=== PATIENT | female | born 1980 | race Caucasian/White ===

== ENCOUNTER 2024-04-28 10:15 | Inpatient (IN) | payer BC ==
[~2024-04-28] VITALS: Ht 172.7 cm; Wt 68.0 kg
[2024-04-28] MEDS ORDERED: VANCOMYCIN 1G PREMIX 200 ML IV ONE (10:30)
[2024-04-28] MEDS: SODIUM CHLORIDE 0.9% (SEPSIS BOLUS) IV ONE (10:44)
[2024-04-28] MEDS: PIPERACILLIN/TAZO 3.375G/50ML 50 ML IV ONE (10:44)
[2024-04-28] MEDS: ONDANSETRON HCL 4MG/2ML INJ IV ONE (11:03)
[2024-04-28 11:10] LABS: INR 0.9; PROTHROMBIN TIME 10.1 sec (9.6-11.0)
[2024-04-28 11:19] LABS: BASOPHILS % 0.4 % (0.0-2.0); EOSINOPHILS % 0.3 % (0.0-5.0); HEMATOCRIT. 50.6 % (36.0-48.0); LYMPHOCYTES % 12.6 % (20.0-50.0); MEAN CORPUSCULAR HEMOGLOBIN 28.1 pg (28.0-32.0); MEAN CORPUSCULAR HGB CONC 31.5 g/dL (31.0-37.0); MEAN CORPUSCULAR VOLUME 89.1 fL (81.0-99.0); MEAN PLATELET VOLUME 7.9 fl (7.4-10.4); NEUTROPHILS % 82.7 % (40.0-76.0); PLATELET 504 x1000/uL (130-400); RED BLOOD CELL COUNT 5.67 mill/uL (4.2-5.4); RED CELL DISTRIBUTION WIDTH 14.5 % (11.6-14.6); WHITE BLOOD COUNT 29.6 x1000/uL (4.5-11.0)
[2024-04-28 11:28] LABS: LACTIC ACID 4.1 mmol/L (0.4-2.0)
[2024-04-28] MEDS: VANCOMYCIN 1000MG/250ML IV NR (11:34)
[2024-04-28 12:10] LABS: CALCIUM 9.1 mg/dL (8.7-10.4); CARBON DIOXIDE 11 mEq/L (21-32); CHLORIDE 114 mEq/L (98-107); POTASSIUM 4.1 mEq/L (3.5-5.1); SODIUM 140 mEq/L (136-145)
[2024-04-28 12:13] LABS: TROPONIN I HIGH SENSITIVITY 29 ng/L (3.0-34)
[2024-04-28 12:15] LABS: ALANINE AMINOTRANSFERASE < 7 IU/L (10-49); ASPARTATE AMINOTRANSFERASE 18 IU/L (<34); BILIRUBIN DIRECT 0.1 mg/dL (<=3.0); BILIRUBIN TOTAL 0.6 mg/dL (0.1-1.0); CREATININE 1.2 mg/dL (0.6-1.0); GLUCOSE 134 mg/dL (70-105); PROTEIN TOTAL 6.9 g/dL (6.0-8.3); UREA NITROGEN BLOOD 9 mg/dL (9-23)
[2024-04-28 12:43] LABS: HCG SCREEN NEGATIVE
[2024-04-28] MEDS ORDERED: VANCOMYCIN 1G PREMIX 200 ML IV SCH (13:00)
[2024-04-28] MEDS ORDERED: DOCUSATE SODIUM 100MG CAPSULE PO PRN (13:00)
[2024-04-28] MEDS ORDERED: ACETAMINOPHEN 325MG TABLET PO PRN (13:00)
[2024-04-28] MEDS ORDERED: GUAIFENESIN 200MG/10ML SUGAR FREE UDC PO PRN (13:00)
[2024-04-28] MEDS ORDERED: IPRATROPIUM/ALBUTEROL 0.5-3(2.5)MG/3ML NEB HHN PRN (13:00)
[2024-04-28] MEDS ORDERED: CLONIDINE 0.1MG TABLET PO PRN (13:00)
[2024-04-28] MEDS ORDERED: HYDRALAZINE 20MG/ML VIAL IV PRN (13:15)
[2024-04-28] MEDS: LORAZEPAM 0.5MG TABLET PO PRN (13:26)
[2024-04-28] MEDS: DEXT 5%/0.9% NACL 1,000 ML IV SCH (13:34)
[2024-04-28] MEDS: ONDANSETRON HCL 4MG/2ML INJ IV PRN (13:35)
[2024-04-28] MEDS ORDERED: MORPHINE SULFATE 2 MG/ML INJ (NOT FOR IM USE) IV PRN (13:45)
[2024-04-28] MEDS ORDERED: NALOXONE HCL 0.4MG/ML VIAL IV PRN (14:00)
[2024-04-28 14:48] LABS: BG BASE EXCESS -11.7 mmol/L (-2.0-3.0); BG CARBOXYHEMOGLOBIN 0.2 % (0.5-1.5); BG DEOXYHEMOGLOBIN 1.5 % (0.0-5.0); BG FRACTION INSPIRED OXYGEN 21; BG HCO3 ACT 9.4 mmol/L (21.0-28.0); BG METHEMOGLOBIN 0.1 % (0.5-1.5); BG OXYGEN SATURATION 98.5 % (94.0-98.0); BG OXYHEMOGLOBIN 98.2 % (94.0-98.0); BG PCO2 15.5 mmHg (32.0-45.0); BG PO2 111.4 mmHg (83.0-108.0); BG SAMPLE SITE RIGHT RADIAL; BG TOTAL HEMOGLOBIN 17.4 g/dL (12.0-16.0); BG VENT MODE ROOM AIR
[2024-04-28 15:30] VITALS: BP 121/51; PULSE 106; RESP 25; TEMP 36.6404
[2024-04-28] MEDS: PANTOPRAZOLE SODIUM 40 MG/VIAL IV SCH (15:30)
[2024-04-28 16:00] VITALS: BP 105/64; PULSE 92; RESP 25; TEMP 36.78072; O2SAT 96
[2024-04-28] MEDS: PNEUMOCOCCAL 20-VAL CONJ-DIP CRM 0.5ML IM ONE (16:00)
[2024-04-28] MEDS: SODIUM CHLORIDE 0.9% 1,000 ML IV ONE (16:45)
[2024-04-28 16:57] LABS: HEMATOCRIT. 51.1 % (36.0-48.0); HEMOGLOBIN. 16.4 g/dL (12.0-16.0); MEAN CORPUSCULAR HEMOGLOBIN 28.3 pg (28.0-32.0); MEAN CORPUSCULAR HGB CONC 32.1 g/dL (31.0-37.0); MEAN CORPUSCULAR VOLUME 88.3 fL (81.0-99.0); MEAN PLATELET VOLUME 8.2 fl (7.4-10.4); PLATELET 375 x1000/uL (130-400); RED BLOOD CELL COUNT 5.79 mill/uL (4.2-5.4); RED CELL DISTRIBUTION WIDTH 14.5 % (11.6-14.6); WHITE BLOOD COUNT 28.2 x1000/uL (4.5-11.0)
[2024-04-28 17:03] LABS: DIFFERENTIAL COMMENT 1
[2024-04-28 17:10] LABS: TRIGLYCERIDE 127 mg/dL (0-150)
[2024-04-28 17:11] LABS: CHLORIDE 115 mEq/L (98-107); LDL CHOLESTEROL 111 mg/dL (5-100); POTASSIUM 4.8 mEq/L (3.5-5.1); SODIUM 141 mEq/L (136-145); TROPONIN I HIGH SENSITIVITY 32 ng/L (3.0-34)
[2024-04-28 17:12] LABS: ALANINE AMINOTRANSFERASE < 7 IU/L (10-49); ALBUMIN 3.6 g/dL (3.2-4.8); ASPARTATE AMINOTRANSFERASE 11 IU/L (<34); BILIRUBIN DIRECT 0.1 mg/dL (<=3.0); CALCIUM 8.5 mg/dL (8.7-10.4); CARBON DIOXIDE 15 mEq/L (21-32); CHOLESTEROL 183 mg/dL (<200); HDL CHOLESTEROL 50 mg/dL (>65)
[2024-04-28 17:13] LABS: BILIRUBIN TOTAL 0.5 mg/dL (0.1-1.0); PROTEIN TOTAL 6.1 g/dL (6.0-8.3)
[2024-04-28 17:15] LABS: T4 FREE 1.24 ng/dL (0.89-1.76); THYROID STIMULATING HORMONE 1.44 uIU/mL (0.55-4.78)
[2024-04-28 17:17] LABS: CREATININE 1.1 mg/dL (0.6-1.0); GLUCOSE 118 mg/dL (70-105); UREA NITROGEN BLOOD 13 mg/dL (9-23)
[2024-04-28] MEDS: PIPERACILLIN/TAZO 3.375G/50ML 50 ML IV SCH (17:17)
[2024-04-28 17:19] LABS: BETA HYDROXYBUTYRATE 0.6 mMol/L (0.0-0.3); PHOSPHORUS 2.2 mg/dL (2.5-4.9)
[2024-04-28 17:27] LABS: PLATELET ESTIMATE NORMAL
[2024-04-28] MEDS: ACETAMINOPHEN 325MG TABLET PO PRN (17:38)
[2024-04-28] MEDS: MAGNESIUM/ALUMINUM HYDROXIDE/SIMETHICONE 30ML UDC PO PRN (17:38)
[2024-04-28 17:52] LABS: CREATINE KINASE 65 IU/L (34-145); TROPONIN I HIGH SENSITIVITY 32 ng/L (3.0-34)
[2024-04-28 18:00] VITALS: BP 121/51; PULSE 106; RESP 20; O2SAT 97
[2024-04-28] MEDS: THIAMINE HCL 100 MG in SODIUM CHLORIDE 0.9% 49 ML IV SCH (18:34)
[2024-04-28 19:11] LABS: CLARITY URINE TURBID (CLEAR); COLOR URINE DARK YELLOW (YELLOW); GLUCOSE URINE NEGATIVE (NEGATIVE); KETONES URINE NEGATIVE (NEGATIVE); LEUKOCYTE ESTERASE URINE NEGATIVE (NEGATIVE); NITRITE URINE NEGATIVE (NEGATIVE); OCCULT BLOOD URINE NEGATIVE (NEGATIVE); PH URINE 5.5 (4.5-8.0); PROTEIN URINE 2+ (NEGATIVE); SPECIFIC GRAVITY URINE 1.032 (1.005-1.030); UROBILINOGEN URINE 0.2 E.U./dL (0.2-1.0)
[2024-04-28 19:25] LABS: *AMPHETAMINES SCREEN URINE NEGATIVE (NEGATIVE); *BARBITURATES SCREEN URINE NEGATIVE (NEGATIVE); *BENZODIAZEPINES SCREEN URINE NEGATIVE (NEGATIVE); *COCAINE SCREEN URINE NEGATIVE (NEGATIVE); BACTERIA URINE 3+; HYALINE CASTS URINE 0-5 /lpf; METHADONE URINE SCREEN NEGATIVE (NEGATIVE); OPIATES URINE SCREEN NEGATIVE (NEGATIVE); SQUAMOUS EPITHELIAL CELL URINE 1+ /lpf (RARE/1+)
[2024-04-28 19:26] LABS: CANNABINOID URINE SCREEN NEGATIVE (NEGATIVE); ECSTASY MDMA SCREEN URINE NEGATIVE (NEGATIVE); PHENCYCLIDINE URINE SCREEN NEGATIVE (NEGATIVE)
[2024-04-28 20:00] VITALS: BP 115/60; PULSE 94; RESP 17; TEMP 36.114; O2SAT 97
[2024-04-28] MEDS ORDERED: DEXT 5%/LACTATED RINGERS 1,000 ML IV SCH (20:15)
[2024-04-28] MEDS: DEXT 5%/0.45% NACL 1000ML 1,000 ML IV SCH (20:26)
[2024-04-28] MEDS: VANCOMYCIN 250MG/5ML ORAL SYRINGE PO SCH (21:15)
[2024-04-28 22:00] VITALS: BP 110/64; PULSE 90; RESP 18; O2SAT 97
[2024-04-29] VITALS (11 sets, daily range): BP systolic 113–146; BP diastolic 56–81; PULSE 78–95; RESP 16–21; TEMP 36.28068–36.89184; O2SAT 97–99
[2024-04-29] MEDS ORDERED: VANCOMYCIN 750MG/250ML IV SCH
[2024-04-29 00:31] LABS: CREATINE KINASE 35 IU/L (34-145)
[2024-04-29 00:38] LABS: TROPONIN I HIGH SENSITIVITY 60 ng/L (3.0-34)
[2024-04-29 06:50] LABS: CHLORIDE 116 mEq/L (98-107); POTASSIUM 3.8 mEq/L (3.5-5.1); SODIUM 143 mEq/L (136-145)
[2024-04-29 06:51] LABS: BASOPHILS % 0.4 % (0.0-2.0); CALCIUM 7.8 mg/dL (8.7-10.4); CARBON DIOXIDE 20 mEq/L (21-32); EOSINOPHILS % 0.1 % (0.0-5.0); HEMATOCRIT. 39.3 % (36.0-48.0); HEMOGLOBIN. 12.5 g/dL (12.0-16.0); MEAN CORPUSCULAR HEMOGLOBIN 28.3 pg (28.0-32.0); MEAN CORPUSCULAR HGB CONC 31.8 g/dL (31.0-37.0); MEAN CORPUSCULAR VOLUME 88.8 fL (81.0-99.0); MEAN PLATELET VOLUME 7.9 fl (7.4-10.4); MONOCYTES % 7.4 % (2.0-8.0); NEUTROPHILS % 71.1 % (40.0-76.0); PLATELET 304 x1000/uL (130-400); RED BLOOD CELL COUNT 4.42 mill/uL (4.2-5.4); RED CELL DISTRIBUTION WIDTH 14.6 % (11.6-14.6); WHITE BLOOD COUNT 15.6 x1000/uL (4.5-11.0)
[2024-04-29 06:56] LABS: GLUCOSE 106 mg/dL (70-105); UREA NITROGEN BLOOD 13 mg/dL (9-23)
[2024-04-29 06:58] LABS: PHOSPHORUS 2.1 mg/dL (2.5-4.9)
[2024-04-29 07:01] LABS: CREATINE KINASE 35 IU/L (34-145); CREATINE KINASE MB FRACTION < 0.5 ng/mL (0.5-3.6)
[2024-04-29 08:21] LABS: TROPONIN I HIGH SENSITIVITY 45 ng/L (3.0-34)
[2024-04-29] MEDS: SODIUM PHOSPHATE 15 MMOL in DEXT 5% WATER 245 ML IV NR (09:07)
[2024-04-29 20:55] LABS: CREATINE KINASE MB FRACTION < 0.5 ng/mL (0.5-3.6); TROPONIN I HIGH SENSITIVITY 24 ng/L (3.0-34)
[2024-04-29 20:57] LABS: CREATINE KINASE 49 IU/L (34-145)
[2024-04-30] VITALS: BP 144/83; PULSE 92; RESP 18; TEMP 36.28068; O2SAT 97
[2024-04-30 04:00] VITALS: BP 134/81; PULSE 91; RESP 18; TEMP 36.16956; O2SAT 98
[2024-04-30 08:00] VITALS: BP 147/69; PULSE 93; RESP 20; TEMP 36.28068; O2SAT 100
[2024-04-30] MEDS: POTASSIUM PHOSPHATE 30 MMOL in DEXT 5% WATER 490 ML IV ONE (09:03)
[2024-04-30 12:00] VITALS: PULSE 95; RESP 18; TEMP 36.28068; O2SAT 100
[2024-04-30 14:16] LABS: CREATINE KINASE MB FRACTION < 0.5 ng/mL (0.5-3.6); TROPONIN I HIGH SENSITIVITY 10 ng/L (3.0-34)
[2024-04-30 14:17] LABS: CREATINE KINASE 37 IU/L (34-145)
[2024-04-30 14:21] LABS: HEMATOCRIT 34.3 % (36.0-48.0); HEMOGLOBIN 11.3 g/dL (12.0-16.0); MEAN CORPUSCULAR HEMOGLOBIN 28.8 pg (28.0-32.0); MEAN CORPUSCULAR HGB CONC 32.9 g/dL (31.0-37.0); MEAN CORPUSCULAR VOLUME 87.7 fL (81.0-99.0); PLATELET 242 x1000/uL (130-400); RED BLOOD CELL COUNT 3.91 mill/uL (4.2-5.4); RED CELL DISTRIBUTION WIDTH 13.8 % (11.6-14.6); WHITE BLOOD COUNT 10.4 x1000/uL (4.5-11.0)
[2024-04-30 16:00] VITALS: BP 131/71; PULSE 95; RESP 18; TEMP 36.114; O2SAT 100
[2024-04-30 20:00] VITALS: BP 141/78; PULSE 91; RESP 18; TEMP 37.11408; O2SAT 95
[2024-04-30 21:55] LABS: CHLORIDE 111 mEq/L (98-107); POTASSIUM 2.9 mEq/L (3.5-5.1); SODIUM 141 mEq/L (136-145)
[2024-04-30 21:57] LABS: CALCIUM 8.4 mg/dL (8.7-10.4); CARBON DIOXIDE 24 mEq/L (21-32)
[2024-04-30 22:02] LABS: CREATININE 0.8 mg/dL (0.6-1.0); GLUCOSE 96 mg/dL (70-105)
[2024-04-30 22:06] LABS: UREA NITROGEN BLOOD < 5 mg/dL (9-23)
[2024-05-01] VITALS: BP 123/59; PULSE 77; RESP 18; TEMP 36.22512
[2024-05-01] MEDS: POTASSIUM PHOSPHATE 30 MMOL in DEXT 5% WATER 490 ML IV NR ×2 (00:10→06:48)
[2024-05-01 04:00] VITALS: BP 124/77; PULSE 82; RESP 18; TEMP 36.114; O2SAT 98
[2024-05-01 08:00] VITALS: BP 138/98; PULSE 80; RESP 20; TEMP 36.22512; O2SAT 99
[2024-05-01] MEDS ORDERED: METR375C2 MT (09:19)
[2024-05-01] MEDS ORDERED: CIPR500S5 PO (09:19)
[2024-05-01 12:00] VITALS: BP 142/77; PULSE 89; RESP 20; TEMP 36.22512; O2SAT 98
[2024-05-01] MEDS: KCL 20MEQ/100ML PREMIX 100 ML IV SCH (12:37)
[2024-05-01 14:48] VITALS: BP 141/79; PULSE 86; TEMP 98.1; O2SAT 98
[2024-05-01 16:00] VITALS: BP 141/79; PULSE 84; RESP 20; TEMP 36.16956; O2SAT 99
[2024-05-03 13:11] LABS: SACCHAROMYCES CEREVISIAE IGG <20.0 Units (0.0-24.9); SACCHAROMYCES CEREVISIAE IGM <20.0 Units (0.0-24.9)
[2024-05-06 08:09] LABS: ATYPICAL pANCA <1:20 titer (Neg:<1:20)
[2024-05-07 04:08] LABS: AMPHETAMINE SCREEN Negative ng/mL (Cutoff:50); BARBITURATE SCREEN Negative ug/mL (Cutoff:0.1); BENZODIAZEPINE SCREEN Negative ng/mL (Cutoff:20); CANNABINOID SCREEN Negative ng/mL (Cutoff:5); OPIATES SCREEN Negative ng/mL (Cutoff:5); OXYCODONE SCREEN Negative ng/mL (Cutoff:5); PHENCYCLIDINE SCREEN Negative ng/mL (Cutoff:8)
== END 2024-05-01 17:17 | disposition home or self-care (01) | DRG 871 ==
LOC: ER 10:15 → 5EST 12:22 → EDBEDREQTM 12:26 → EDBEDREQ 12:26 → EDBEDREQSVC 12:26 → 6WST 04-29 18:46
PROVIDERS: ADMIT Hospitalist; ATTEND Hospitalist
PROC: 02HV33Z Insertion of Infusion Device into Superior Vena Cava, Percutaneous Approach (ICD-10-PCS; principal; 2024-04-28)
PROC: B548ZZA Ultrasonography of Superior Vena Cava, Guidance (ICD-10-PCS; 2024-04-28)
DX: A41.9 Sepsis, unspecified organism (principal); K65.9 Peritonitis, unspecified; R65.21 Severe sepsis with septic shock; E87.20 Acidosis, unspecified; N17.9 Acute kidney failure, unspecified; K44.9 Diaphragmatic hernia without obstruction or gangrene; E05.00 Thyrotoxicosis with diffuse goiter without thyrotoxic crisis or storm; R76.8 Other specified abnormal immunological findings in serum; E87.6 Hypokalemia; K58.9 Irritable bowel syndrome, unspecified; F41.9 Anxiety disorder, unspecified; I10 Essential (primary) hypertension; Z78.9 Other specified health status; Z87.891 Personal history of nicotine dependence
CPT/HCPCS: 36415; 36573; 36600; 71045; 74176; 80048; 80061; 80076; 80305; 80307; 81003; 82010; 82270; 82375; 82550; 82553; 82805; 82962; 83036; 83605; 83735; 84100; 84145; 84439; 84443; 84484; 84703; 85025; 85027; 86038; 86225; 86235; 86256; 86671; 87015; 87045; 87076; 87177; 87209; 87427; 87449; 87493; 89055; 93005; 99291; C1725; J2405; J2470; J2543; J3370; J3411; J3480; J3490; J7030; J7060